=== PATIENT | male | born 1990 | race African-American/Black ===

== ENCOUNTER 2018-05-12 12:29 | Emergency (ER) | payer SELFPAY | END 2018-05-12 14:00 | disposition left against medical advice (07) | LOC: ER 12:29 | DX: R45.851 Suicidal ideations (principal) | CPT/HCPCS: 99283 ==

== ENCOUNTER 2019-07-08 11:05 | Emergency (ER) | payer MEDICAID ==
[~2019-07-08] VITALS: Ht 185.4 cm; Wt 105.0 kg
[2019-07-08] MEDS ORDERED: IBUPROFEN 400MG TABLET PO ONE (11:45)
[2019-07-08 13:13] VITALS: BP 137/70
== END 2019-07-08 13:21 | disposition home or self-care (01) ==
LOC: ER 11:05
DX: M25.511 Pain in right shoulder (principal)
CPT/HCPCS: 73030; 99283